=== PATIENT | male | born 1945 | race Caucasian/White ===

== ENCOUNTER 2020-03-17 16:10 | Emergency (ER) | payer OTHER ==
[2020-03-17] MEDS ORDERED: Albuterol/Ipratropium 3.0-0.5 MG/3 ML Neb Soln NEB ONE ×2 (16:20→19:21)
[2020-03-17] MEDS ORDERED: Dexamethasone 4 MG/ML SDV IVPUSH ONE (16:20)
[2020-03-17] MEDS ORDERED: Azithromycin 500 MG in Sodium Chloride 0.9% 250 ML IV ONE (16:22)
[2020-03-17] MEDS ORDERED: Sodium Chloride 0.9% 1,000 ML IV SCH (16:30)
--- NOTE | 2020-03-17 17:14 | EDM.PDOC ---
ED HPI GENERAL MEDICAL PROBLEM - General Chief Complaint: Respiratory Problem Stated Complaint: SOB Time Seen by Provider: 03/17/20 16:15 Source of Information: Reports: Patient, EMS Notes Reviewed History Limitations: Reports: No Limitations - History of Present Illness INITIAL COMMENTS - FREE TEXT/NARRATIVE: pt states he has had breathing problems for a long time , got worse in the last 2-3 days , no has worsening cough and fever Lives with friend has worsening cough with sob . Does not use oxygen at home [facility] does not know which [facility]s he takes pt is a current smoker Onset: Today Onset Date: 03/17/20 Duration: Getting Worse Location: Reports: Chest Quality: Reports: Same as Previous Episode Severity: Moderate Improves with: Reports: None Worsens with: Reports: Breathing Associated Symptoms: Reports: Cough, Fever/Chills, Malaise, Shortness of Breath, Weakness - Related Data Allergies Allergy/AdvReac Type Severity Reaction Status Date / Time No Known Allergies Allergy Verified 03/17/20 17:01 Home Meds: Home Meds Albuterol/Ipratropium [DuoNeb 3.0-0.5 MG/3 ML] 3 ml .XX Q6HR PRN #1 box 03/17/20 [Rx] Azithromycin [Zithromax] 500 mg PO DAILY #5 tab 03/17/20 [Rx] Fluticasone Propionate [Flovent HFA 220 MCG] 1 puff INH BID #1 inh 03/17/20 [Rx] Nebulizer and Compressor [Easy Neb Compressor Nebulizer] 1 each MC Q6HR PRN #1 each 03/17/20 [Rx] guaiFENesin [Mucinex] 600 mg PO BID #30 tab.er.12h 03/17/20 [Rx] predniSONE [Prednisone] 40 mg PO DAILY #5 tablet 03/17/20 [Rx] ED ROS GENERAL - Review of Systems Review Of Systems: See Below Constitutional: Reports: Fever, Chills, Malaise, Weakness, Fatigue, Night Sweats, Diaphoresis, Decreased Appetite, Weight Loss HEENT: Reports: No Symptoms Respiratory: Reports: Shortness of Breath, Wheezing, Cough, Sputum. Denies: Hemoptysis Cardiovascular: Reports: No Symptoms, Dyspnea on Exertion, Lightheadedness Endocrine: Reports: Fatigue GI/Abdominal: Reports: No Symptoms : Reports: No Symptoms Musculoskeletal: Reports: No Symptoms Skin: Reports: No Symptoms Neurological: Reports: No Symptoms Psychiatric: Reports: No Symptoms Hematologic/Lymphatic: Reports: No Symptoms Immunologic: Reports: No Symptoms ED EXAM, GENERAL - Physical Exam Exam: See Below Exam Limited By: Respiratory Distress General Appearance: Alert, WD/WN Eye Exam: Bilateral Eye: EOMI Ears: Normal External Exam Throat/Mouth: Normal Inspection, Normal Oropharynx Head: Atraumatic, Normocephalic Neck: Supple, Non-Tender Respiratory/Chest: No Respiratory Distress, Lungs Clear, Decreased Breath Sounds, Crackles, Rales, Rhonchi, Wheezing, Accessory Muscle Use, Retractions Cardiovascular: Normal Peripheral Pulses, Regular Rate, Rhythm GI/Abdominal: Soft, Non-Tender Back Exam: Full Range of Motion Extremities: No Pedal Edema. No: Pedal Edema Neurological: Alert, Oriented, CN II-XII Intact, Normal Cognition Psychiatric: Normal Affect Course - Vital Signs Last Recorded V/S: Last Vital Signs Temp 36.8 C 03/17/20 16:10 Pulse 98 03/17/20 16:10 Resp 40 H 03/17/20 16:10 BP 140/92 H 03/17/20 16:10 Pulse Ox 99 03/17/20 16:10 - Orders/Labs/Meds Labs: Laboratory Tests 03/17/20 03/17/20 03/17/20 Range/Units 16:25 16:30 16:30 WBC 9.4 (4.5-12.0) X10-3/uL RBC 3.99 L (4.30-5.75) x10(6)uL Hgb 11.6 L (13.5-17.8) g/dL Hct 35.0 (30.0-51.3) % MCV 87.8 (80-96) fL MCH 29.1 (27.7-33.6) pg MCHC 33.1 (32.2-35.4) g/dL RDW 13.4 (11.5-15.5) % Plt Count 303 (125-369) X10(3)uL PT (9.0-11.1) sec INR (1.00-1.24) D-Dimer, Quantitative (0.0-0.59) mg/LFEU POC VBG pH (7.32-7.43) pH Units POC VBG pCO2 (41-51) mmHg POC VBG HCO3 (21-29) mmol/L VBG Base Excess (-2-3) mmol/L O2 Delivery Device Sodium 138 (135-145) mmol/L Potassium 3.9 (3.5-5.3) mmol/L Chloride 98 L (100-110) mmol/L Carbon Dioxide 34 H (21-32) mmol/L BUN 23 H (7-18) mg/dL Creatinine 0.9 (0.70-1.30) mg/dL Est Cr Clr Drug Dosing TNP Estimated GFR (MDRD) > 60 (>60) BUN/Creatinine Ratio 25.6 H (9-20) Glucose 128 H (80-116) mg/dL Calcium 8.3 L (8.6-10.2) mg/dL C-Reactive Protein (0.5-0.9) mg/dL SARS-CoV-2 RNA (PORTER) Positive H (NEGATIVE) 03/17/20 03/17/20 03/17/20 Range/Units 16:30 16:30 17:15 WBC (4.5-12.0) X10-3/uL RBC (4.30-5.75) x10(6)uL Hgb (13.5-17.8) g/dL Hct (30.0-51.3) % MCV (80-96) fL MCH (27.7-33.6) pg MCHC (32.2-35.4) g/dL RDW (11.5-15.5) % Plt Count (125-369) X10(3)uL PT 10.5 (9.0-11.1) sec INR 0.97 L (1.00-1.24) D-Dimer, Quantitative 0.82 H (0.0-0.59) mg/LFEU POC VBG pH 7.38 (7.32-7.43) pH Units POC VBG pCO2 52 H (41-51) mmHg POC VBG HCO3 30 H (21-29) mmol/L VBG Base Excess 5 H (-2-3) mmol/L O2 Delivery Device Nasal cannula Sodium (135-145) mmol/L Potassium (3.5-5.3) mmol/L Chloride (100-110) mmol/L Carbon Dioxide (21-32) mmol/L BUN (7-18) mg/dL Creatinine (0.70-1.30) mg/dL Est Cr Clr Drug Dosing Estimated GFR (MDRD) (>60) BUN/Creatinine Ratio (9-20) Glucose (80-116) mg/dL Calcium (8.6-10.2) mg/dL C-Reactive Protein 27.0 H* (0.5-0.9) mg/dL SARS-CoV-2 RNA (PORTER) (NEGATIVE) Meds: Medications Discontinued Medications Generic Name Dose Route Start Last Admin Trade Name Freq PRN Reason Stop Dose Admin Albuterol/Ipratropium 3 ml 03/17/20 16:20 03/17/20 16:38 Duoneb 3.0-0.5 Mg/3 Ml NEB 03/17/20 16:21 3 ml ONETIME ONE Administration Albuterol/Ipratropium 3 ml 03/17/20 19:21 03/18/20 03:44 Duoneb 3.0-0.5 Mg/3 Ml NEB 03/17/20 19:22 Not Given ONETIME ONE Dexamethasone 8 mg 03/17/20 16:20 03/17/20 16:39 Decadron IVPUSH 03/17/20 16:21 8 mg ONETIME ONE Administration Sodium Chloride 1,000 mls @ 999 mls/hr 03/17/20 16:30 03/17/20 16:39 Normal Saline IV 999 mls/hr ASDIRECTED ARMANDO Administration Azithromycin 500 mg/ Sodium 250 mls @ 250 mls/hr 03/17/20 16:22 03/17/20 16:39 Chloride IV 03/17/20 17:21 250 mls/hr ONETIME ONE Administration - Re-Assessments/Exams Free Text/Narrative Re-Assessment/Exam: 03/17/20 21:30 pt on arrival was in respiratory distress Was given OXYgen via NC by ambulance: 6liters gradually tapered to 4 liters , placed on NRB then was given decadron, zithromax and duoneb Over the next hour as he was observed sob resolved SD ws in the 120 -140 reduced to 70-80 patient sleeping well and relaxed Oxygne requirement was reduced to 3 liters ( 02 sat increased to 93-94% At a point his 02 sat had decreased to 83-84% Attempts made to transfer pt to [facility] was not successful NO admission beds were available here and staff inadequate Gradually pt improved and stayed improved 02 requirement dropped to 2 liters ( he used 3 liters at home) decision was made to return pt home as he has good support system 03/17/20 21:37 I informed his roommate that he was also COVID positive Departure - Departure Time of Disposition: 21:30 Disposition: Home, Self-Care 01 Clinical Impression: COPD exacerbation, SOB (shortness of breath), COVID-19 virus infection, Bronchitis due to COVID-19 virus - Discharge Information *PRESCRIPTION DRUG MONITORING PROGRAM REVIEWED*: Not Applicable *COPY OF PRESCRIPTION DRUG MONITORING REPORT IN PATIENT YINKA: Not Applicable Prescriptions: Albuterol/Ipratropium [DuoNeb 3.0-0.5 MG/3 ML] 3 ml .XX Q6HR PRN #1 box PRN Reason: Shortness Of Breath Nebulizer and Compressor [Easy Neb Compressor Nebulizer] 1 each MC Q6HR PRN #1 each PRN Reason: Dyspnea Fluticasone Propionate [Flovent HFA 220 MCG] 1 puff INH BID #1 inh guaiFENesin [Mucinex] 600 mg PO BID #30 tab.er.12h predniSONE [Prednisone] 40 mg PO DAILY #5 tablet Azithromycin [Zithromax] 500 mg PO DAILY #5 tab Instructions: Chronic Obstructive Pulmonary Disease Exacerbation, [id number], COVID-19 Frequently Asked Questions, How to Use a Nebulizer, Adult, Upper Respiratory Infection, Adult, [id number], Prevent the Spread of COVID-19 if You Are Sick - [facility] Referrals: PCP,None [Primary Care Provider] - Forms: ED Department Discharge Additional Instructions: 1) [facility] 2) If symptoms get worse , call [facility]
[2020-03-17 17:28] LABS: BASE EXCESS VENOUS,POC 5 mmol/L (-2-3); HCO3 VENOUS,POC 30 mmol/L (21-29); PCO2 VENOUS,POC 52 mmHg (41-51); PH VENOUS,POC 7.38 pH Units (7.32-7.43)
--- NOTE | 2020-03-17 19:30 | CR ---
INDICATION: Shortness of breath. CHEST, ONE VIEW: Two AP upright views of the chest were obtained. The view including the lung bases was somewhat limited due to motion. However, there does appear to be some patchy infiltration at both lung bases and possibly the right mid lung field, which may be on the basis of pneumonia. Blunted costophrenic angles, especially on the right, suggests pleuritis additionally. The heart did not appear enlarged and was normal in shape. The aorta is tortuous with calcification in the arch. Overlying EKG leads are noted. No evidence of CHF is seen. Hyperaeration and flattened diaphragm leaves raise question of COPD. IMPRESSION: 1. Findings suggest possibility of patchy bronchopneumonia at the lung bases and right mid lung field, but could also be at least partly on the basis of fibrosis - correlate clinically. Blunted costophrenic angles, especially on the right, suggests either fibrosis or pleuritis. 2. ASD aorta. 3. Possible COPD - correlate clinically. MTDD
== END 2020-03-17 22:00 | disposition home or self-care (01) ==
LOC: FB.ED 16:10
DX: U07.1 COVID-19 (principal); J44.1 Chronic obstructive pulmonary disease with (acute) exacerbation
CPT/HCPCS: 36415; 71045; 80048; 85027; 85379; 85610; 86140; 87635; 93005; 94640; 96365; 96375; 99285; J0456; J1100; J7030; J7050; 99284; J7620-GY; U0002

== ENCOUNTER 2020-03-20 14:31 | Emergency (ER) | payer OTHER ==
--- NOTE | 2020-03-20 14:43 | EDM.PDOC ---
ED HPI GENERAL MEDICAL PROBLEM - General Chief Complaint: Respiratory Problem Stated Complaint: shortness of breath Time Seen by Provider: 03/20/20 14:40 Source of Information: Reports: Patient, Family History Limitations: Reports: No Limitations - History of Present Illness INITIAL COMMENTS - FREE TEXT/NARRATIVE: dropped off by ?roommate Having sob cough , no fever or chills Known COVID patient , COPD using 3 liters of oxygen at home seen last week , was not able to get med : [facility] , not able to afford medications otherwise still waiting for medication, . Has been in bed all the time ( per roommate) pt states he was not able to obtained medication that had been prescribed; no one to go pick it , has to wait for the [facility] to mail to him Onset: Today Onset Date: 03/20/20 Duration: Getting Worse Location: Reports: Chest Quality: Reports: Dull, Pressure Improves with: Reports: Medication Worsens with: Reports: None Associated Symptoms: Reports: Cough, Shortness of Breath, Weakness - Related Data Allergies Allergy/AdvReac Type Severity Reaction Status Date / Time No Known Allergies Allergy Verified 03/20/20 15:34 Home Meds: Home Meds Albuterol/Ipratropium [DuoNeb 3.0-0.5 MG/3 ML] 3 ml NEB Q6HR #1 box 03/20/20 [Rx] predniSONE [Prednisone] 40 mg PO DAILY #5 tablet 03/20/20 [Rx] Furosemide [Lasix] 40 mg PO DAILY #14 tab 03/24/20 [Rx] Past Medical History Respiratory History: Reports: COPD ED ROS GENERAL - Review of Systems Review Of Systems: See Below Constitutional: Reports: Malaise, Weakness, Fatigue. Denies: Fever, Chills HEENT: Reports: No Symptoms Respiratory: Reports: Shortness of Breath, Wheezing, Cough. Denies: Pleuritic Chest Pain Cardiovascular: Reports: No Symptoms, Dyspnea on Exertion. Denies: Edema, Palpitations, PND Endocrine: Reports: Fatigue GI/Abdominal: Reports: No Symptoms : Reports: No Symptoms Musculoskeletal: Reports: No Symptoms Skin: Reports: No Symptoms Neurological: Reports: No Symptoms Psychiatric: Reports: No Symptoms Hematologic/Lymphatic: Reports: No Symptoms ED EXAM, GENERAL - Physical Exam Exam: See Below Exam Limited By: No Limitations General Appearance: Alert, Mild Distress (respiratory) Eye Exam: Bilateral Eye: EOMI Ears: Normal External Exam Nose: Normal Inspection Throat/Mouth: Normal Oropharynx Head: Atraumatic, Normocephalic Neck: Supple, Non-Tender Respiratory/Chest: Decreased Breath Sounds, Rales, Wheezing, Accessory Muscle Use, Retractions Cardiovascular: Normal Peripheral Pulses, Regular Rate, Rhythm Extremities: Normal Range of Motion, Pedal Edema. No: Limited Range of Motion Neurological: Alert, Oriented, CN II-XII Intact Skin Exam: Warm Course - Vital Signs Last Recorded V/S: Last Vital Signs Temp 36.6 C 03/20/20 15:45 Pulse 92 03/20/20 17:35 Resp 24 H 03/20/20 17:35 BP 114/73 03/20/20 17:35 Pulse Ox 94 L 03/20/20 17:35 - Orders/Labs/Meds Labs: Laboratory Tests 03/20/20 03/20/20 03/20/20 Range/Units 14:50 14:50 14:50 WBC 5.7 (4.5-12.0) X10-3/uL RBC 4.47 (4.30-5.75) x10(6)uL Hgb 12.8 L (13.5-17.8) g/dL Hct 39.1 (30.0-51.3) % MCV 87.4 (80-96) fL MCH 28.7 (27.7-33.6) pg MCHC 32.9 (32.2-35.4) g/dL RDW 13.0 (11.5-15.5) % Plt Count 467 H (125-369) X10(3)uL MPV 7.0 L (7.4-10.4) fL Neut % (Auto) 78.6 (46-82) % Lymph % (Auto) 13.8 (13-37) % Oliver % (Auto) 7.0 (4-12) % Eos % (Auto) 0 L (1.0-5.0) % Baso % (Auto) 0 (0-2) % Neut # (Auto) 4.5 (1.6-8.3) # Lymph # (Auto) 0.8 (0.6-5.0) # Oliver # (Auto) 0.4 (0.0-1.3) # Eos # (Auto) 0.0 (0.0-0.8) # Baso # (Auto) 0.0 (0.0-0.2) # PT 11.0 (9.0-11.1) sec INR 1.02 (1.00-1.24) D-Dimer, Quantitative 1.12 H (0.0-0.59) mg/LFEU POC ABG pH (7.35-7.45) pH POC ABG pCO2 (35-48) mmHg POC ABG pO2 (83-108) mmHg POC ABG HCO3 (21-28) mmol/L ABG O2 Sat (Calculated) (94-98) % POC ABG Base Excess (-2-3) mmol/L Taiwo Test (PASS) O2 Delivery Device Sodium 137 (135-145) mmol/L Potassium 3.9 (3.5-5.3) mmol/L Chloride 97 L (100-110) mmol/L Carbon Dioxide 31 (21-32) mmol/L BUN 22 H (7-18) mg/dL Creatinine 0.9 (0.70-1.30) mg/dL Est Cr Clr Drug Dosing TNP Estimated GFR (MDRD) > 60 (>60) BUN/Creatinine Ratio 24.4 H (9-20) Glucose 133 H (80-116) mg/dL Calcium 8.9 (8.6-10.2) mg/dL Total Bilirubin 1.0 (0.1-1.3) mg/dL AST 41 H (5-25) IU/L ALT 37 H (12-36) U/L Alkaline Phosphatase 54 L (56-112) IU/L NT-Pro-B Natriuret Pep (<=450) pg/mL Total Protein 7.1 (6.0-8.0) g/dL Albumin 2.4 L (3.2-4.6) g/dL Globulin 4.7 g/dL Albumin/Globulin Ratio 0.5 03/20/20 03/20/20 Range/Units 14:50 15:20 WBC (4.5-12.0) X10-3/uL RBC (4.30-5.75) x10(6)uL Hgb (13.5-17.8) g/dL Hct (30.0-51.3) % MCV (80-96) fL MCH (27.7-33.6) pg MCHC (32.2-35.4) g/dL RDW (11.5-15.5) % Plt Count (125-369) X10(3)uL MPV (7.4-10.4) fL Neut % (Auto) (46-82) % Lymph % (Auto) (13-37) % Oliver % (Auto) (4-12) % Eos % (Auto) (1.0-5.0) % Baso % (Auto) (0-2) % Neut # (Auto) (1.6-8.3) # Lymph # (Auto) (0.6-5.0) # Oliver # (Auto) (0.0-1.3) # Eos # (Auto) (0.0-0.8) # Baso # (Auto) (0.0-0.2) # PT (9.0-11.1) sec INR (1.00-1.24) D-Dimer, Quantitative (0.0-0.59) mg/LFEU POC ABG pH 7.4 (7.35-7.45) pH POC ABG pCO2 43 (35-48) mmHg POC ABG pO2 86 (83-108) mmHg POC ABG HCO3 28 (21-28) mmol/L ABG O2 Sat (Calculated) 96.8 (94-98) % POC ABG Base Excess 4 H (-2-3) mmol/L Taiwo Test Pass (PASS) O2 Delivery Device Nasal cannula Sodium (135-145) mmol/L Potassium (3.5-5.3) mmol/L Chloride (100-110) mmol/L Carbon Dioxide (21-32) mmol/L BUN (7-18) mg/dL Creatinine (0.70-1.30) mg/dL Est Cr Clr Drug Dosing Estimated GFR (MDRD) (>60) BUN/Creatinine Ratio (9-20) Glucose (80-116) mg/dL Calcium (8.6-10.2) mg/dL Total Bilirubin (0.1-1.3) mg/dL AST (5-25) IU/L ALT (12-36) U/L Alkaline Phosphatase (56-112) IU/L NT-Pro-B Natriuret Pep 4729 H* (<=450) pg/mL Total Protein (6.0-8.0) g/dL Albumin (3.2-4.6) g/dL Globulin g/dL Albumin/Globulin Ratio Meds: Medications Discontinued Medications Generic Name Dose Route Start Last Admin Trade Name Romy PRN Reason Stop Dose Admin Dexamethasone 8 mg 03/20/20 14:35 03/20/20 14:50 Decadron IVPUSH 03/20/20 14:36 8 mg ONETIME ONE Administration Azithromycin 500 mg/ Sodium 250 mls @ 250 mls/hr 03/20/20 14:35 03/20/20 14:50 Chloride IV 03/20/20 15:34 250 mls/hr ONETIME ONE Administration - Re-Assessments/Exams Free Text/Narrative Re-Assessment/Exam: 03/20/20 15:35 [facility] Did not get any scripts filled , so has not had any Neb, steroid or antibiotic since he was discharge 03/20/20 16:54 pt given meds ; steroids, neb , zithromax and immediately got better Departure - Departure Time of Disposition: 17:00 Disposition: Home, Self-Care 01 Condition: Fair Clinical Impression: COPD exacerbation, COVID-19 virus infection, SOB (shortness of breath), Bronchitis due to COVID-19 virus - Discharge Information *PRESCRIPTION DRUG MONITORING PROGRAM REVIEWED*: Not Applicable *COPY OF PRESCRIPTION DRUG MONITORING REPORT IN PATIENT YINKA: Not Applicable Prescriptions: Albuterol/Ipratropium [DuoNeb 3.0-0.5 MG/3 ML] 3 ml NEB Q6HR #1 box predniSONE [Prednisone] 40 mg PO DAILY #5 tablet Referrals: PCP,None [Primary Care Provider] - Forms: ED Department Discharge Additional Instructions: 1) Take medications as directed 2) Call with any concerns
[2020-03-20] MEDS: Azithromycin 500 MG in Sodium Chloride 0.9% 250 ML IV ONE (14:50)
[2020-03-20] MEDS: Dexamethasone 4 MG/ML SDV IVPUSH ONE (14:50)
[2020-03-20 15:29] LABS: PCO2 ARTERIAL,POC 43 mmHg (35-48); PH ARTERIAL,POC 7.4 pH (7.35-7.45); PO2 ARTERIAL,POC 86 mmHg (83-108)
--- NOTE | 2020-03-20 20:00 | CR ---
INDICATION: Shortness of breath, positive COVID. CHEST, ONE VIEW: Two AP upright portable views of the chest were obtained 03/20/20 and compared with 03/17/20 revealing significant increase in infiltration in the right mid and especially lower lung field with evidence of pleural effusion increased in size also on the right. Relatively minimal pleural parenchymal changes noted on the left which might be slightly improved compared with the previous examination. No other change or new process was identified. Findings compatible with COPD are noted. IMPRESSION: 1. Significant worsening of pneumonia and pleuritis noted on the right with decreased infiltrate suggested at the left lung base. 2. COPD. 3. Mild ASD aorta. MTDD
== END 2020-03-20 17:55 | disposition home or self-care (01) ==
LOC: FB.ED 14:31
DX: U07.1 COVID-19 (principal); J44.1 Chronic obstructive pulmonary disease with (acute) exacerbation; Z79.899 Other long term (current) drug therapy
CPT/HCPCS: 36415; 71045; 80053; 82803; 83880; 85025; 85379; 85610; 96365; 96375; 99284; 99285-25; J0456; J1100; J7050

== ENCOUNTER 2020-03-24 12:10 | Emergency (ER) | payer OTHER ==
--- NOTE | 2020-03-24 13:22 | EDM.PDOC ---
ED HPI GENERAL MEDICAL PROBLEM - General Chief Complaint: General Stated Complaint: SOB,SWELLING LE Time Seen by Provider: 03/24/20 13:10 Source of Information: Reports: Patient, Old Records History Limitations: Reports: No Limitations - History of Present Illness INITIAL COMMENTS - FREE TEXT/NARRATIVE: Maximo returns to [facility] ED with a recent hx of Covid 19 diagnosed about [facility]. In addition, he had developed pneumonia and appears to be having issues with SOB, minimally productive cough, and poor appetite. [facility] noted swelling in both ankles this am, believed skin color to be poor, and suggested revisit to the ED. He has a hx of noncompliance with medical treatment. Treatments [employer]: Reports: Oxygen Other Treatments [employer]: 3L - Related Data Allergies Allergy/AdvReac Type Severity Reaction Status Date / Time No Known Allergies Allergy Verified 03/20/20 15:34 Home Meds: Home Meds Albuterol/Ipratropium [DuoNeb 3.0-0.5 MG/3 ML] 3 ml NEB Q6HR #1 box 03/20/20 [Rx] predniSONE [Prednisone] 40 mg PO DAILY #5 tablet 03/20/20 [Rx] Furosemide [Lasix] 40 mg PO DAILY #14 tab 03/24/20 [Rx] Past Medical History HEENT History: Reports: Impaired Vision Respiratory History: Reports: COPD Other Respiratory History: emphysema, home 02 3 liters nc. Genitourinary History: Reports: Other (See Below) Other Genitourinary History: slow urination d/t prostate. - Past Surgical History HEENT Surgical History: Reports: None Musculoskeletal Surgical History: Reports: Other (See Below) Other Musculoskeletal Surgeries/Procedures:: surgery on left hand Social & Family History - Tobacco Use Tobacco Use Status *Q: Current Every Day Tobacco User Years of Tobacco use: 40 Packs/Tins Daily: 1 Used Tobacco, but Quit: Yes Month/Year Tobacco Last Used: 3 weeks ago - Caffeine Use Caffeine Use: Reports: Coffee - Alcohol Use Days Per Week of Alcohol Use: 1 Number of Drinks Per Day: 1 Total Drinks Per Week: 1 - Recreational Drug Use Recreational Drug Use: No ED ROS GENERAL - Review of Systems Review Of Systems: See Below Constitutional: Reports: Malaise, Weakness, Fatigue, Decreased Appetite HEENT: Reports: No Symptoms Respiratory: Reports: Shortness of Breath, Cough Cardiovascular: Reports: Dyspnea on Exertion, Edema, Orthopnea Endocrine: Reports: Fatigue GI/Abdominal: Reports: Decreased Appetite : Reports: No Symptoms Musculoskeletal: Reports: No Symptoms Skin: Reports: Other (edema of LE) Neurological: Reports: Difficulty Walking, Weakness Psychiatric: Reports: No Symptoms Hematologic/Lymphatic: Reports: No Symptoms Immunologic: Reports: No Symptoms ED EXAM, GENERAL - Physical Exam Exam: See Below Exam Limited By: Physical Impairment General Appearance: Alert, Lethargic, Mild Distress, Thin Eye Exam: Bilateral Eye: EOMI, Normal Inspection, PERRL Ears: Normal External Exam Nose: Normal Inspection Throat/Mouth: No Airway Compromise, Other (voice quality soft) Head: Normocephalic Neck: Normal Inspection, Supple Respiratory/Chest: Chest Non-Tender, Decreased Breath Sounds, Crackles, Rhonchi, Accessory Muscle Use, Prolonged Expiration Cardiovascular: Regular Rate, Rhythm, JVD GI/Abdominal: Soft, Non-Tender, No Organomegaly, No Distention, No Mass (Male) Exam: Deferred Rectal (Males) Exam: Deferred Back Exam: Normal Inspection Extremities: Pedal Edema Neurological: Alert, CN II-XII Intact, No Motor/Sensory Deficits, Slow to Respond Psychiatric: Flat Affect Skin Exam: Dry, Cool (feet >hands), Rash Lymphatic: No Adenopathy Course - Vital Signs Text/Narrative:: Following assessment, I obtained a chest x ray: cardiac size is mildly enlarged, with some apparent clearing of infiltrates and appearance of small bilateral pleural effusions; CBC notedi Hgb 12.6 gms, WBC 11,400, plts adequate; BNP 15,103; CRP 18.2; Lactic a 1,7; Troponin I 869; Covid 19 POS; findings consistent with cor pulmonale aggravated by recent Covid pneumonia. Lasix 40 mg IM administered. He remains at 3 lpm and 95% 02 satd. Last Recorded V/S: Last Vital Signs Temp 36.4 C 03/24/20 16:45 Pulse 122 H 03/24/20 16:45 Resp 20 03/24/20 16:45 BP 124/70 03/24/20 16:45 Pulse Ox 95 03/24/20 16:45 - Orders/Labs/Meds Orders: Active Orders 24 hr Category Date Time Status Chest 1V Frontal [CR] Stat Exams 03/24/20 13:14 Taken CULTURE BLOOD [BC] Urgent Lab 03/24/20 13:35 Received CULTURE BLOOD [BC] Urgent Lab 03/24/20 13:40 Received CULTURE SPUTUM + SMEAR [RM] Stat Lab 03/24/20 16:45 Received UA W/MICROSCOPIC [URIN] Stat Lab 03/24/20 13:14 Ordered Blood Culture x2 Reflex Set [OM.PC] Urgent Oth 03/24/20 13:14 Ordered Obtain Bld cultures prior to antibiotics [COMM] Routine Oth 03/24/20 13:14 Ordered EKG 12 Lead [EK] Routine Ther 03/24/20 13:18 Ordered Labs: Laboratory Tests 03/24/20 03/24/20 03/24/20 Range/Units 13:35 13:35 13:35 WBC 11.4 H (3.2-10.1) x10-3/uL RBC 4.46 (3.90-5.90) x10(6)uL Hgb 12.6 L (12.9-17.7) g/dL Hct 38.9 (38.3-50.1) % MCV 87.3 (80.8-98.7) fL MCH 28.2 (27.0-33.3) pg MCHC 32.3 (28.7-35.3) g/dL RDW 14.2 (12.4-15.0) % Plt Count 526 H (117-477) x10(3)uL MPV 7.5 (6.7-11.0) fL Neut % (Auto) 90.1 H (40.3-71.8) % Lymph % (Auto) 3.5 L (15.8-45.3) % [place] % (Auto) 6.2 (5.5-15.2) % Eos % (Auto) 0.0 L (0.1-6.8) % Baso % (Auto) 0.2 L (0.3-3.8) % Neut # (Auto) 10.2 H (1.7-6.9) x10-3/uL Lymph # (Auto) 0.4 L (0.5-4.5) x10-3/uL [place] # (Auto) 0.7 (0.0-1.2) x10-3/uL Eos # (Auto) 0.0 (0.0-0.6) x10-3/uL Baso # (Auto) 0.0 (0.0-0.3) x10-3/uL Sodium 135 (135-145) mmol/L Potassium 4.1 (3.5-5.3) mmol/L Chloride 97 L (100-110) mmol/L Carbon Dioxide 29 (21-32) mmol/L BUN 58 H D (7-18) mg/dL Creatinine 1.3 (0.70-1.30) mg/dL Est Cr Clr Drug Dosing 39.69 mL/min Estimated GFR (MDRD) 54 L (>60) BUN/Creatinine Ratio 44.6 H (9-20) Glucose 154 H (80-116) mg/dL Lactic Acid 1.7 (0.4-2.0) mmol/L Calcium 8.5 L (8.6-10.2) mg/dL Troponin I (4.0-60.3) pg/mL C-Reactive Protein (0.5-0.9) mg/dL NT-Pro-B Natriuret Pep (<=450) pg/mL SARS-CoV-2 RNA (PORTER) (NEGATIVE) 03/24/20 03/24/20 03/24/20 Range/Units 13:35 13:35 15:20 WBC (3.2-10.1) x10-3/uL RBC (3.90-5.90) x10(6)uL Hgb (12.9-17.7) g/dL Hct (38.3-50.1) % MCV (80.8-98.7) fL MCH (27.0-33.3) pg MCHC (28.7-35.3) g/dL RDW (12.4-15.0) % Plt Count (117-477) x10(3)uL MPV (6.7-11.0) fL Neut % (Auto) (40.3-71.8) % Lymph % (Auto) (15.8-45.3) % [place] % (Auto) (5.5-15.2) % Eos % (Auto) (0.1-6.8) % Baso % (Auto) (0.3-3.8) % Neut # (Auto) (1.7-6.9) x10-3/uL Lymph # (Auto) (0.5-4.5) x10-3/uL [place] # (Auto) (0.0-1.2) x10-3/uL Eos # (Auto) (0.0-0.6) x10-3/uL Baso # (Auto) (0.0-0.3) x10-3/uL Sodium (135-145) mmol/L Potassium (3.5-5.3) mmol/L Chloride (100-110) mmol/L Carbon Dioxide (21-32) mmol/L BUN (7-18) mg/dL Creatinine (0.70-1.30) mg/dL Est Cr Clr Drug Dosing mL/min Estimated GFR (MDRD) (>60) BUN/Creatinine Ratio (9-20) Glucose (80-116) mg/dL Lactic Acid (0.4-2.0) mmol/L Calcium (8.6-10.2) mg/dL Troponin I 869.1 H* (4.0-60.3) pg/mL C-Reactive Protein 18.2 H* (0.5-0.9) mg/dL NT-Pro-B Natriuret Pep 94517 H* (<=450) pg/mL SARS-CoV-2 RNA (PORTER) Positive H (NEGATIVE) Meds: Medications Discontinued Medications Generic Name Dose Route Start Last Admin Trade Name Freq PRN Reason Stop Dose Admin Furosemide 40 mg 03/24/20 16:26 03/24/20 16:51 Lasix IM 03/24/20 16:27 40 mg NOW ONE Administration Departure - Departure Time of Disposition: 16:45 Disposition: Home, Self-Care 01 Condition: Fair Clinical Impression: Cor pulmonale, COVID-19 virus infection - Discharge Information *PRESCRIPTION DRUG MONITORING PROGRAM REVIEWED*: Not Applicable *COPY OF PRESCRIPTION DRUG MONITORING REPORT IN PATIENT YINKA: Not Applicable Prescriptions: Furosemide [Lasix] 40 mg PO DAILY #14 tab Referrals: PCP,None [Primary Care Provider] - Forms: ED Department Discharge Sepsis Event Note (ED) - Evaluation Sepsis Screening Result: Possible Sepsis Risk - Focused Exam Vital Signs: Vital Signs Temp Pulse Resp BP Pulse Ox 03/24/20 16:45 36.4 C 122 H 20 124/70 95 03/24/20 12:15 36.7 C 99 22 H 129/97 H 97 - Problem List & Annotations (1) COVID-19 virus infection SNOMED Code(s): 588051541 Code(s): U07.1 - COVID-19 Status: Acute Annotation/Comment:: I dispensed Lasix 40 mg po daily, continue current meds and home 02, sleep in recliner for the next few nights until diuresis improves status. (2) Cor pulmonale SNOMED Code(s): 64543567 Code(s): I27.81 - COR PULMONALE (CHRONIC) Status: Acute Annotation/Comment:: See above. - Problem List Review Problem List Initiated/Reviewed/Updated: Yes - My Orders Last 24 Hours: My Active Orders 03/24/20 13:14 Chest 1V Frontal [CR] Stat UA W/MICROSCOPIC [URIN] Stat Blood Culture x2 Reflex Set [OM.PC] Urgent Obtain Bld cultures prior to antibiotics [COMM] Routine 03/24/20 13:18 EKG 12 Lead [EK] Routine 03/24/20 13:35 CULTURE BLOOD [BC] Urgent 03/24/20 13:40 CULTURE BLOOD [BC] Urgent 03/24/20 16:45 CULTURE SPUTUM + SMEAR [RM] Stat - Assessment/Plan Last 24 Hours: My Active Orders 03/24/20 13:14 Chest 1V Frontal [CR] Stat UA W/MICROSCOPIC [URIN] Stat Blood Culture x2 Reflex Set [OM.PC] Urgent Obtain Bld cultures prior to antibiotics [COMM] Routine 03/24/20 13:18 EKG 12 Lead [EK] Routine 03/24/20 13:35 CULTURE BLOOD [BC] Urgent 03/24/20 13:40 CULTURE BLOOD [BC] Urgent 03/24/20 16:45 CULTURE SPUTUM + SMEAR [RM] Stat Plan: [facility]
[2020-03-24] MEDS ORDERED: Furosemide 40 MG/4 ML VIAL IM ONE (16:26)
== END 2020-03-24 17:35 | disposition home or self-care (01) ==
LOC: FB.ED 12:10
DX: U07.1 COVID-19 (principal); I27.81 Cor pulmonale (chronic); J43.9 Emphysema, unspecified; Z87.891 Personal history of nicotine dependence; Z79.899 Other long term (current) drug therapy
CPT/HCPCS: 36415; 71045; 80048; 83605; 83880; 84484; 85025; 86140; 87040; 87070; 87205; 87635; 93005; 96372; 99285; J1940; 99283; U0002